=== PATIENT | female | born 1965 | race Caucasian/White ===

== ENCOUNTER 2018-12-05 17:30 | Emergency (ER) | payer OTHER ==
[~2018-12-05] VITALS: Ht 160 cm; Wt 109.8 kg
[2018-12-05] MEDS ORDERED: CEFTRIAXONE SOD 1 GM/NS 50 ML 50 ML IV ONE (18:30)
--- NOTE | 2018-12-05 18:50 | Diagnostic Imaging Report ---
CT chest without enhancement CPT code: 71837 INDICATION: Cough, fever TECHNIQUE: Thin collimation axial images obtained from the thoracic inlet to the level of the diaphragm without intravenous contrast. Dose reduction techniques used: Automated exposure control, adjustment of the mAs and/or kVp according to patient size, standardized low-dose protocol, and/or iterative reconstruction technique. RADIATION DOSE: Total DLP: 669.6 mGy*cm Estimated effective dose: (DLP x 0.015 x size factor) mSv CTDIvol has been reviewed. It is below the limits set by the Radiation Protocol Committee (RPC). COMPARISON: None. CHEST FINDINGS: Lymph nodes: No enlarged axillary supra clavicular lymph nodes. Subcarinal lymph node measures 8 mm in AP dimension. The right hilar lymph nodes are mildly prominent. Thyroid: Normal in size without mass in the visualized parenchyma.. Mediastinum: The heart is normal in size with large amount of pericardial fat. Trace pericardial effusion. The esophagus is collapsed. The trachea is midline and is widely patent. Lungs: Right: Right middle lobe infiltrate. Trace amount of groundglass attenuation in the anterior basal segment of the lower lobe suggestive of inflammation or infiltrate. There is associated bronchial wall thickening. Mild bronchial wall thickening of the upper and lower lobes. No discrete mass. No endobronchial lesion is appreciated. Left: No evidence of mass or infiltrate. There is trace amount of subsegmental atelectasis in the lingula. No endobronchial lesion. Pleura: No pleural effusion or pleural based mass.. ABDOMEN FINDINGS: Visualized portions of the upper abdomen demonstrate cholecystectomy clips. No mass or lymphadenopathy. Bones: No focal osseous lesion or evidence of fracture. There are trace degenerative changes of the thoracic spine.. IMPRESSION: 1. Right middle lobe infiltrate. Recommend follow-up chest x-ray in 6-8 weeks after completion of therapy to document interval change/resolution. Prominent mediastinal lymph nodes are likely reactive. 2. Bronchial wall thickening suggestive of bronchitis. Signed by: Dr. Maldonado Guzmán MD on 12/05/2018 6:47 PM
[2018-12-05 19:46] VITALS: BP 125/73
== END 2018-12-05 19:53 | disposition home or self-care (01) ==
LOC: FSED 17:30
DX: R06.00 Dyspnea, unspecified (principal); R05 Cough; J18.9 Pneumonia, unspecified organism; I10 Essential (primary) hypertension
CPT/HCPCS: 71250; 80053; 85025; 99284; J0696

== ENCOUNTER → 2018-12-05 | Outpatient (CLI) | payer OTHER ==
[~2018-12-05] MED LIST: BUSPIRONE HCL10 MG PO; CELEXA40 MG PO
--- NOTE | 2018-12-05 08:44 | Diagnostic Imaging Report ---
PROCEDURE:X-RAY BILATERAL RIBS WITH CHEST XRAY COMPARISON:None. INDICATIONS:LEFT SIDED RIB PAIN FINDINGS: Bones are mildly demineralized. No obvious rib fracture. Upright chest reveals a right lower lung field opacity that appears masslike. Chest CT with contrast is recommended for further evaluation. CONCLUSION: 1. No obvious rib abnormality. 2. Right lower lung field opacity-CT scan of the chest recommended for further evaluation. David Torres D.O. Dictated by: David Torres D.O. on 12/05/2018 at 8:44 Electronically approved by: David Torres D.O. on 12/05/2018 at 8:44
== END ==
LOC: RAD 07:21
PROVIDERS: ATTEND Family Medicine
DX: R07.81 Pleurodynia (principal); R07.89 Other chest pain
CPT/HCPCS: 71111

== ENCOUNTER → 2018-12-15 | Outpatient (CLI) | payer OTHER ==
--- NOTE | 2018-12-15 14:53 | Diagnostic Imaging Report ---
Chest, 2 views, 12/15/2018. History: Follow-up of pneumonia. Comparison: 12/05/2017. Findings: The cardiomediastinal silhouette and pulmonary vasculature are within normal limits. There is decreased right middle lobe opacity. There is no evidence of pleural pleural effusion. Left lung is clear. There are no acute osseous or soft tissue abnormalities. Impression: Improvement in right middle lobe pneumonia. Signed by: Carl Leslie on 12/15/2018 2:50 PM
== END ==
LOC: RAD 14:09
PROVIDERS: ATTEND Family Medicine
DX: Z09 Encounter for follow-up examination after completed treatment for conditions other than malignant neoplasm (principal); J18.9 Pneumonia, unspecified organism
CPT/HCPCS: 71046

== ENCOUNTER → 2019-04-03 | Outpatient (CLI) | payer OTHER ==
--- NOTE | 2019-04-03 16:49 | Diagnostic Imaging Report ---
EXAM: CT Abdomen and Pelvis WITHOUT intravenous contrast INDICATION: Abdominal pain COMPARISON: Chest CT of 12/05/2018 TECHNIQUE: Abdomen and pelvis were scanned utilizing a multidetector helical scanner from the lung base to the pubic symphysis without administration of IV contrast. Coronal and sagittal reformations were obtained. IV CONTRAST: None ORAL CONTRAST: None COMPLICATIONS: None RADIATION DOSE: Total DLP: 737.5 mGy*cm Dose modulation, iterative reconstruction, and/or weight based adjustment of the mA/kV was utilized to reduce the radiation dose to as low as reasonably achievable. FINDINGS: LOWER THORAX: Normal. HEPATOBILIARY: No focal hepatic lesions. No biliary ductal dilatation. Status post cholecystectomy. SPLEEN: No splenomegaly. PANCREAS: No focal masses or ductal dilatation. ADRENALS: No adrenal nodules. KIDNEYS/URETERS: No renal calculi. No hydronephrosis. There is a 1.5 cm exophytic soft tissue mass arising from the anterior aspect of the upper pole of the right kidney. PELVIC ORGANS/BLADDER: Status post hysterectomy. Bladder appears unremarkable. PERITONEUM / RETROPERITONEUM: No free air or fluid. LYMPH NODES: No lymphadenopathy. VESSELS: Unremarkable. GI TRACT: No abnormal bowel wall thickening or evidence of bowel obstruction. Specifically, no diverticulosis or evidence of diverticulitis. Appendix not well visualized however there are no inflammatory changes in the right lower quadrant suggest appendicitis. BONES AND SOFT TISSUES: No acute osseous injury. No suspicious lytic or blastic lesions. IMPRESSION: No acute findings in the abdomen or pelvis. 1.5 cm exophytic soft tissue mass arising from the anterior aspect of the upper pole the right kidney is incompletely evaluated on noncontrast images. Recommend follow-up evaluation with renal ultrasound or renal mass protocol CT. Signed by: Jonna Sheridan MD on 04/03/2019 4:46 PM
== END ==
LOC: RAD 13:44
PROVIDERS: ATTEND Family Medicine
DX: R10.9 Unspecified abdominal pain (principal); N28.89 Other specified disorders of kidney and ureter
CPT/HCPCS: 74176

== ENCOUNTER → 2019-04-06 | Outpatient (CLI) | payer OTHER ==
--- NOTE | 2019-04-06 11:14 | Diagnostic Imaging Report ---
EXAMINATION: CHEST 2 VIEWS INDICATION: Cough COMPARISON: Chest radiograph of 12/15/2018, chest CT of 12/05/2018 FINDINGS: TUBES and LINES: None. LUNGS: The lungs are well-inflated. No focal consolidation or pulmonary edema. Mild subsegmental atelectasis at the left lung base. PLEURA: No pleural effusion or pneumothorax. HEART AND MEDIASTINUM: The cardiomediastinal silhouette is normal in size and contour. BONES AND SOFT TISSUES: No acute fracture or dislocation. UPPER ABDOMEN: No free air under the diaphragm. IMPRESSION: No focal pneumonia or pulmonary edema. Signed by: Jonna Sheriadn MD on 04/06/2019 11:11 AM
== END ==
LOC: RAD 10:37
PROVIDERS: ATTEND Internal Medicine Pulmonary Disease
DX: R05 Cough (principal)
CPT/HCPCS: 71046

== ENCOUNTER → 2019-05-02 | Outpatient (CLI) | payer OTHER ==
--- NOTE | 2019-05-02 10:07 | Diagnostic Imaging Report ---
CT of the chest, without contrast, 05/02/2019. History: Chronic cough. Comparison: 12/05/2018. Technique: Multidetector CT scanning of the chest was performed from the level of the apices to the upper abdomen without contrast. Coronal and sagittal multiplanar reformations were obtained. RADIATION DOSE: Total DLP: 531 mGy*cm Dose modulation, iterative reconstruction, and/or weight based adjustment of the mA/kV was utilized to reduce the radiation dose to as low as reasonably achievable. Discussion: Evaluation mediastinum and vascular structures is limited without IV contrast. Chest: The heart, aorta, and main pulmonary artery are normal in size. The thyroid is unremarkable. There is no gross adenopathy. Scattered linear opacities are present laterally. There is no evidence of consolidation, mass, or pleural effusion. Limited evaluation of the upper abdomen shows normal adrenal glands. Bones and soft tissues: No acute abnormality. Degenerative changes are present in the thoracic spine. IMPRESSION: Bilateral linear atelectasis. Interval resolution of right middle lobe pneumonia. Signed by: Carl Leslie on 05/02/2019 10:04 AM
== END ==
LOC: CT 07:42
PROVIDERS: ATTEND Internal Medicine Pulmonary Disease
DX: R05 Cough (principal)
CPT/HCPCS: 71250

== ENCOUNTER → 2020-08-28 | Outpatient (CLI) | payer OTHER | LOC: US 12:26 | PROVIDERS: ATTEND Internal Medicine Gastroenterology | DX: K30 Functional dyspepsia (principal); R19.7 Diarrhea, unspecified; Z86.010 Personal history of colon polyps; Z80.0 Family history of malignant neoplasm of digestive organs; Z71.3 Dietary counseling and surveillance; E66.3 Overweight; Z20.828 Contact with and (suspected) exposure to other viral communicable diseases | CPT/HCPCS: 76700 ==